=== PATIENT | female | born 1980 | race African-American/Black ===

== ENCOUNTER 2023-01-17 08:51 | Outpatient (CLI) | payer OTHER ==
[2023-01-17] MEDS ORDERED: Magnevist 469MG/ML 20 ML VIAL ONE (09:38)
== END 2023-01-17 08:52 | disposition home or self-care (01) ==
LOC: CSHMRI 08:51
PROVIDERS: ATTEND Radiology Radiation Oncology
DX: C79.31 Secondary malignant neoplasm of brain (principal); C50.919 Malignant neoplasm of unspecified site of unspecified female breast; Z98.890 Other specified postprocedural states; R90.89 Other abnormal findings on diagnostic imaging of central nervous system
CPT/HCPCS: 70553

== ENCOUNTER 2023-05-05 13:10 | Outpatient (CLI) | payer OTHER | END 2023-05-05 13:11 | disposition home or self-care (01) | LOC: CSHMRI 13:10 | PROVIDERS: ATTEND Radiology Radiation Oncology | DX: C79.31 Secondary malignant neoplasm of brain (principal); C50.919 Malignant neoplasm of unspecified site of unspecified female breast; Z92.3 Personal history of irradiation; Z98.890 Other specified postprocedural states | CPT/HCPCS: 70553 ==